=== PATIENT | male | born 1990 | race Caucasian/White ===

== ENCOUNTER 2019-05-18 05:55 | Day surgery (SDC) | payer OTHER ==
[2019-05-18] MEDS: LACTATED RINGER'S 1,000 ML IV (06:31)
[2019-05-18] MEDS ORDERED: ROPIVACAINE 0.5 % 30 ML VIAL (08:04)
[2019-05-18] MEDS ORDERED: MIDAZOLAM 1 MG/ML 2 ML INJ (08:04)
[2019-05-18] MEDS ORDERED: PROPOFOL 20 ML (08:04)
[2019-05-18] MEDS ORDERED: CEFAZOLIN 1 GM INJ (08:04)
[2019-05-18] MEDS ORDERED: ROCURONIUM 50 MG INJ (08:04)
[2019-05-18] MEDS ORDERED: METOCLOPRAMIDE 10 MG INJ (08:26)
[2019-05-18] MEDS ORDERED: ONDANSETRON 4 MG INJ (08:26)
[2019-05-18] MEDS ORDERED: DEXAMETHASONE 4 MG/ML 5 ML INJ (08:26)
[2019-05-18] MEDS ORDERED: KETOROLAC 30 MG INJ (08:27)
[2019-05-18] MEDS: POLYMYXIN/BACITRACIN 1L IRRIG IRR (08:46)
[2019-05-18] MEDS ORDERED: NALOXONE (0.4 MG/ML) INJ (09:29)
[2019-05-18] MEDS ORDERED: HYDROmorphONE 1 MG/5 ML IV SYRINGE IV ×3 (09:30)
[2019-05-18] MEDS ORDERED: LABETALOL HCL 20MG INJ IV (09:30)
[2019-05-18] MEDS ORDERED: FENTAnyl 50 MCG/ML VIAL IV ×3 (09:30)
[2019-05-18] MEDS ORDERED: OXYCODONE/ACETAMINOPHEN (5/325) TAB PO (09:30)
[2019-05-18] MEDS ORDERED: ONDANSETRON 4 MG INJ IV ×2 (09:30→10:00)
[2019-05-18] MEDS ORDERED: METOCLOPRAMIDE 10 MG INJ IV (09:30)
[2019-05-18] MEDS ORDERED: EPHEDrine 25 MG/5 ML SYG IV (09:30)
[2019-05-18] MEDS ORDERED: HYDROCODONE/APAP (5/325) TAB PO ×2 (10:00)
[2019-05-18] MEDS ORDERED: morphine 2 MG INJ IV (10:00)
== END 2019-05-18 10:55 | disposition home or self-care (01) ==
LOC: SDS 05:55
DX: S82.62XA Displaced fracture of lateral malleolus of left fibula, initial encounter for closed fracture (principal); X58.XXXA Exposure to other specified factors, initial encounter
CPT/HCPCS: 27792; 73600-LT